=== PATIENT | male | born 1950 | race Caucasian/White ===

== ENCOUNTER 2020-01-12 11:51 | Emergency (ER) | payer OTHER ==
[~2020-01-12] VITALS: Ht 162.6 cm; Wt 99.1 kg
[2020-01-12 12:05] VITALS: TEMP 99.1
[2020-01-12] MEDS ORDERED: LASIX 20MG TABL20 MG PO (12:21)
[2020-01-12] MEDS ORDERED: PROTONIX20 MG PO (12:21)
[2020-01-12] MEDS ORDERED: DESYREL 100MG100 MG PO (12:21)
[2020-01-12] MEDS ORDERED: CATAPRES-TTS 30.3 MG TD (12:21)
[2020-01-12] MEDS ORDERED: MASON NATURAL2000 IU PO (12:21)
[2020-01-12] MEDS ORDERED: GLUCOTROL XL2.5 MG PO (12:22)
[2020-01-12] MEDS ORDERED: LYRICA 25MG CAP25 MG PO (12:22)
[2020-01-12] MEDS ORDERED: ULTRAM ER100 MG PO (12:22)
[2020-01-12] MEDS ORDERED: TOPROL XL100 MG PO (12:23)
[2020-01-12] MEDS ORDERED: ATACAND 16M16 MG/TAB PO (12:23)
[2020-01-12] MEDS ORDERED: GLUCOPHAGE1000 MG PO (12:25)
[2020-01-12] MEDS ORDERED: ASPIRIN E.C. 8181 MG PO (12:26)
[2020-01-12] MEDS ORDERED: LIPITOR 80MG80 MG PO (12:26)
[2020-01-12] MEDS ORDERED: CELEXA 20MG20 MG/TAB PO (12:27)
[2020-01-12] MEDS ORDERED: BRILINTA90 MG PO (12:27)
[2020-01-12] MEDS ORDERED: PROSCAR 5MG5 MG PO (12:27)
[2020-01-12] MEDS ORDERED: CLARITIN 1010 MG/TAB PO (12:27)
[2020-01-12 14:04] VITALS: BP 127/62; PULSE 73
== END 2020-01-12 14:04 | disposition home or self-care (01) ==
LOC: COL.ER 11:51 → EDBD 11:54 → COL.ER 14:04
DX: M79.661 Pain in right lower leg (principal); Z79.84 Long term (current) use of oral hypoglycemic drugs; Z79.82 Long term (current) use of aspirin; Z86.73 Personal history of transient ischemic attack (TIA), and cerebral infarction without residual deficits

== ENCOUNTER 2021-01-02 11:27 | Emergency (ER) | payer MEDICARE ==
[~2021-01-02] VITALS: Ht 165.1 cm; Wt 97.7 kg
[~2021-01-02 11:27] MED LIST: ASPIRIN E.C. 8181 MG PO; ATACAND 16M16 MG/TAB PO; BRILINTA90 MG PO; CATAPRES-TTS 30.3 MG TD; CELEXA 20MG20 MG/TAB PO; CLARITIN 1010 MG/TAB PO; DESYREL 100MG100 MG PO; GLUCOPHAGE1000 MG PO; GLUCOTROL XL2.5 MG PO; LASIX 20MG TABL20 MG PO; LIPITOR 80MG80 MG PO; LYRICA 25MG CAP25 MG PO; MASON NATURAL2000 IU PO; PROSCAR 5MG5 MG PO; PROTONIX20 MG PO; TOPROL XL100 MG PO; ULTRAM ER100 MG PO
[2021-01-02 11:39] VITALS: TEMP 98.5
[2021-01-02 12:29] LABS: BASO % 0.3 % (0.0-2.0); EOS # 0.1 (0.0-0.7); EOS % 0.9 % (0-4.0); GRAN % 73.5 % (42.2-75.2); HEMOGLOBIN 12.8 g/dl (13.5-18.0); LYMPH # 2.3 (1.2-3.4); LYMPH % 19.1 % (20.0-51.0); MEAN CELL VOLUME 89 fl (80.0-100.0); MEAN CORPUSCULAR HEMOGLOBIN 31 pg (27.0-31.0); MEAN CORPUSCULAR HGB CONC 35 g/dl (33.0-37.0); MEAN PLATELET VOLUME 10.3 fl (7.4-10.4); MONO # 0.7 (0.1-0.6); MONO % 5.6 % (1.7-9.3); PLATELET COUNT 275 K/mm3 (130-400); RED BLOOD COUNT 4.16 M/mm3 (4.20-5.60); REDCELL DISTRIBUTION WIDTH-CV 14.7 % (11.5-14.5)
[2021-01-02 12:30] LABS: HEMATOCRIT 36.9 % (42.0-52.0)
[2021-01-02 12:42] LABS: ALBUMIN 3.9 gm/dL (3.5-5.0); BILIRUBIN,TOTAL 0.3 mg/dL (0.0-1.0); C-REACTIVE PROTEIN 1.9 mg/dL (0.0-0.9); CALCIUM 9.2 mg/dL (8.4-10.2); CREATININE, serum 2.03 (0.66-1.25); POTASSIUM 4.7 mmol/L (3.4-5.0)
[2021-01-02] MEDS ORDERED: ZOFRAN ODT4 MG PO (13:23)
[2021-01-02] MEDS ORDERED: NORCO 325 MG-51 TAB PO (13:23)
[2021-01-02 13:26] LABS: COLLECTION METHOD CLEAN CATCH
[2021-01-02 13:31] LABS: PH 5 (5-8); SQUAMOUS EPITHELIAL None Seen /hpf; URINE APPEARANCE Clear; URINE BACTERIA None Seen /hpf; URINE BILIRUBIN Negative (NEGATIVE); URINE BLOOD Negative (NEGATIVE); URINE COLOR Straw; URINE GLUCOSE 3+ (NEGATIVE); URINE KETONE Negative (NEGATIVE); URINE LEUKOCYTE ESTERASE Negative (NEGATIVE); URINE NITRATE Negative (NEGATIVE); URINE PROTEIN(semi-quant) Negative (NEGATIVE); URINE RBC None Seen /hpf; URINE UROBILINOGEN Negative (NEGATIVE)
[2021-01-02 14:41] VITALS: BP 146/79; PULSE 72
== END 2021-01-02 14:41 | disposition home or self-care (01) ==
LOC: COL.ER 11:27
PROVIDERS: Family Medicine
DX: K85.90 Acute pancreatitis without necrosis or infection, unspecified (principal); I10 Essential (primary) hypertension; E11.9 Type 2 diabetes mellitus without complications; I25.10 Atherosclerotic heart disease of native coronary artery without angina pectoris; Z86.73 Personal history of transient ischemic attack (TIA), and cerebral infarction without residual deficits; Z79.84 Long term (current) use of oral hypoglycemic drugs; Z79.899 Other long term (current) drug therapy; Z79.82 Long term (current) use of aspirin; Z79.02 Long term (current) use of antithrombotics/antiplatelets; Z20.822 Contact with and (suspected) exposure to COVID-19
CPT/HCPCS: J2405; J7120